=== PATIENT | female | born 2000 | race African-American/Black ===

== ENCOUNTER 2020-02-02 18:20 | Emergency (ER) | payer OTHER ==
[~2020-02-02] VITALS: Ht 172.7 cm; Wt 90.0 kg
[2020-02-02 18:25] VITALS: BP 144/86
[2020-02-02] MEDS ORDERED: ACETAMINOPHEN 500MG TABLET PO ONE (19:30)
== END 2020-02-02 21:32 | disposition home or self-care (01) ==
LOC: ER 18:20
DX: S13.4XXA Sprain of ligaments of cervical spine, initial encounter (principal); M25.512 Pain in left shoulder; R51.9 Headache, unspecified; V49.49XA Driver injured in collision with other motor vehicles in traffic accident, initial encounter; Y93.89 Activity, other specified; Y92.488 Other paved roadways as the place of occurrence of the external cause
CPT/HCPCS: 81025; 99284